=== PATIENT | female | born 1975 | race American Indian/Alaskan Native ===

== ENCOUNTER 2018-03-01 20:30 | Emergency (ER) | payer MEDICAID ==
[2018-03-01 20:36] VITALS: BP 114/62
[2018-03-01] MEDS ORDERED: BENADRYL PO ONE ×2 (22:41→22:53)
--- NOTE | 2018-03-02 00:35 | Emergency Department Report ---
ED Rash HPI - HPI Chief Complaint: Skin Rash Stated Complaint: ITCHING Time Seen by Provider: 03/01/18 23:35 Duration: 1 Day Rash Symptoms: Yes Itching Severity: mild Other History: 42-year-old -[place] female comes in complaining of itchiness since 11 PM on 02/28/2018. Mother denies any change of wash detergent , body wash, soaps, perfumes, new clothes, new soaps, no pets. She does admit to sleeping over friend's house on her couch. ED Review of Systems ROS: Stated complaint: ITCHING Other details as noted in HPI Comment: All other systems reviewed and negative Skin: pruritus, other (itchiness) ED Past Medical Hx - Past Medical History Previous Medical History?: No - Surgical History Past Surgical History?: No - Social History Smoking Status: Current Some Day Smoker Substance Use Type: Marijuana Rash Exam - Exam General: Vital signs noted. No distress. Alert and acting appropriately. HEENT: No Periorbital Edema, No Conjuctival Injection, No Chemosis, No Perioral Edema, No Tongue Edema, No Uvular Edema, No Compromised Airway, No Drooling Lungs: Yes Good Air Exchange (Normal Breath Sounds), No Wheezes, No Ronchi, No Stridor, No Cough, No Labored Respirations, No Retractions, No Use of Accessory Muscles, No Other Abnormal Lung Sounds Heart: Yes Regular, No Murmur Skin: No Urticarial Rash, No Maculopapular Rash, No Morbilliform rash, No Bulla( e), No Excoriations, No Weeping, No Tenderness, No Erythema, No Edema, No Encrustations, No Other ED Course Vital Signs 03/01/18 20:27 Temperature 98.1 F Pulse Rate 84 Respiratory 12 Rate Blood Pressure 114/62 O2 Sat by Pulse 99 Oximetry ED Medical Decision Making - Medical Decision Making Mother has been evaluated by this provider fast track. Patient was given Benadryl in triage. Discussed mom I'll discharge her home if she has any rash or continuing itchiness she can get [id number] Claritin or Benadryl to take. If her symptoms persist or gets worse she should follow up with her primary care provider. Critical care attestation.: If time is entered above; I have spent that time in minutes in the direct care of this critically ill patient, excluding procedure time. ED Disposition Clinical Impression: Pruritus Disposition: [id number] TO HOME OR SELFCARE Is pt being admited?: No Does the pt Need Aspirin: No Condition: Stable Instructions: Itchy Skin (ED) Additional Instructions: If he develops a rash or itching continues please follow up with her primary care provider Referrals: JOSH PHILLIPS MD [Primary Care Provider] - 3-5 Days Forms: Work/School Release Form(ED)
== END 2018-03-02 01:15 | disposition home or self-care (01) ==
LOC: ED 20:30
DX: L29.9 Pruritus, unspecified (principal); F17.200 Nicotine dependence, unspecified, uncomplicated; F12.10 Cannabis abuse, uncomplicated
CPT/HCPCS: 99282